=== PATIENT | female | born 1985 | race Caucasian/White ===

== ENCOUNTER 2021-04-11 12:17 | Emergency (ER) | payer OTHER ==
--- NOTE | 2021-04-11 12:53 | CR ---
[id number] RAD/RAD Chest PA And Lateral EXAM: RAD Chest PA And Lateral INDICATION: FALL LAST NIGHT, RIGHT ANTEROLATERAL CHEST PAIN. COMPARISON: None. DISCUSSION: Cardiomediastinal silhouette is normal in size and contour. No infiltrate, effusion, pneumothorax, or edema. No radiographic evidence of acute rib fracture. IMPRESSION: No acute cardiopulmonary abnormality. Adrián Ruiz DO 04/12/21 1511 Thank you for allowing us to participate in the care of your patient.
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
== END 2021-04-11 13:09 | disposition home or self-care (01) ==
LOC: VM.ED 12:17
DX: S20.211A Contusion of right front wall of thorax, initial encounter (principal); J44.9 Chronic obstructive pulmonary disease, unspecified; Z72.0 Tobacco use; Z79.899 Other long term (current) drug therapy; W17.89XA Other fall from one level to another, initial encounter
CPT/HCPCS: 71046; 99283; 99283-25